=== PATIENT | female | born 2000 | race Two or more races ===

== ENCOUNTER 2019-08-13 17:18 | Emergency (ER) | payer BC ==
--- NOTE | 2019-08-13 20:12 | EDM.PDOC ---
ED HPI GENERAL MEDICAL PROBLEM - General Chief Complaint: MANAGER PRESENTATION Problem Stated Complaint: NEWLY PG - BLEEDING Time Seen by Provider: 08/13/19 18:09 Source of Information: Reports: Patient History Limitations: Reports: No Limitations - History of Present Illness INITIAL COMMENTS - FREE TEXT/NARRATIVE: 18-year-old female presents for evaluation and treatment of vaginal bleeding and cramping. Patient reports her last menstrual period was July 10. She took multiple at home urine et this past weekend and they were all positive. She contacted her MANAGER PRESENTATION provider, Dr. Owens in [place], who ordered several outpatient quantitative hCGs. 2 days ago her hCG was 68. It was repeated today but she has not yet noted results. She is a . She does not know her blood type. Patient reports last night she noticed some brownish discharge. Today at work she states that she felt "wet ". And appreciated some bright red blood on her panty liner. She has not had enough to soak through the panty liner. This only been bleeding for a couple hours prior to arrival in the ER. She is now developed cramping, primarily in the upper abdomen. No back pain, lightheadedness, dizziness or syncope. Suprapubic Pain Score (Numeric/FACES): 5 - Related Data Allergies Allergy/AdvReac Type Severity Reaction Status Date / Time bee venom protein (honey bee) Allergy Airway Verified 08/13/19 17:49 Tightness Home Meds: Home Meds Vits #93/Iron Fum/FA [ Formula Tablet] 1 each PO DAILY [History] Past Medical History - Past Health History Medical/Surgical History: Denies Medical/Surgical History Social & Family History - Tobacco Use Smoking Status *Q: Never Smoker - Caffeine Use Caffeine Use: Reports: Coffee - Recreational Drug Use Recreational Drug Use: No ED ROS GENERAL - Review of Systems Review Of Systems: See Below GI/Abdominal: Reports: Abdominal Pain (cramping, upper abdomen). Denies: Nausea , Vomiting : Reports: Other (reports vaginal bleeding). Denies: Dysuria Musculoskeletal: Denies: Back Pain ED EXAM - Physical Exam Exam: See Below Exam Limited By: No Limitations General Appearance: Alert, WD/WN, No Apparent Distress Respiratory/Chest: No Respiratory Distress, Lungs Clear, Normal Breath Sounds Cardiovascular: Normal Peripheral Pulses, Regular Rate, Rhythm, No Murmur GI/Abdominal Exam: Normal Bowel Sounds, Soft, Non-Tender, No Distention Neurological: Alert, Oriented, Normal Cognition Psychiatric: Normal Affect, Normal Mood Skin Exam: Warm, Dry, Normal Color Course - Vital Signs Last Recorded V/S: Last Vital Signs Temp 100.2 F 08/13/19 17:57 Pulse 75 08/13/19 17:57 Resp 16 08/13/19 17:57 BP 125/85 08/13/19 17:57 Pulse Ox 100 08/13/19 17:57 - Orders/Labs/Meds Orders: Active Orders 24 hr Category Date Time Status Orthostatic Vital Signs [RC] ASDIRECTED Care 08/13/19 18:41 Active Labs: Laboratory Tests 08/13/19 08/13/19 08/13/19 Range/Units 19:03 19:03 19:03 WBC 10.28 H (3.98-10.04) K/mm3 RBC 4.66 (3.98-5.22) M/mm3 Hgb 13.1 (11.2-15.7) gm/dl Hct 40.6 (34.1-44.9) % MCV 87.1 (79.4-94.8) fl MCH 28.1 (25.6-32.2) pg MCHC 32.3 (32.2-35.5) g/dl RDW Std Deviation 44.3 (36.4-46.3) fL Plt Count 272 (182-369) K/mm3 MPV 11.4 (9.4-12.3) fl Neut % (Auto) 69.1 (34.0-71.1) % Lymph % (Auto) 23.4 (19.3-51.7) % [place] % (Auto) 6.4 (4.7-12.5) % Eos % (Auto) 0.6 L (0.7-5.8) Baso % (Auto) 0.3 (0.1-1.2) % Neut # (Auto) 7.10 H (1.56-6.13) K/mm3 Lymph # (Auto) 2.41 (1.18-3.74) K/mm3 [place] # (Auto) 0.66 H (0.24-0.36) K/mm3 Eos # (Auto) 0.06 (0.04-0.36) K/mm3 Baso # (Auto) 0.03 (0.01-0.08) K/mm3 HCG, Quant 52.0 mIU/mL Urine Color (Yellow) Urine Appearance (Clear) Urine pH (5.0-8.0) Ur Specific Hayes (1.005-1.030) Urine Protein (Negative) Urine Glucose (UA) (Negative) Urine Ketones (Negative) Urine Occult Blood (Negative) Urine Nitrite (Negative) Urine Bilirubin (Negative) Urine Urobilinogen (0.2-1.0) Ur Leukocyte Esterase (Negative) Urine RBC (0-5) /hpf Urine WBC (0-5) /hpf Ur Squamous Epith Cells (0-5) /hpf Urine Bacteria (FEW) /hpf Urine Mucus (FEW) /hpf Blood Type O POSITIVE 08/13/19 Range/Units 20:16 WBC (3.98-10.04) K/mm3 RBC (3.98-5.22) M/mm3 Hgb (11.2-15.7) gm/dl Hct (34.1-44.9) % MCV (79.4-94.8) fl MCH (25.6-32.2) pg MCHC (32.2-35.5) g/dl RDW Std Deviation (36.4-46.3) fL Plt Count (182-369) K/mm3 MPV (9.4-12.3) fl Neut % (Auto) (34.0-71.1) % Lymph % (Auto) (19.3-51.7) % [place] % (Auto) (4.7-12.5) % Eos % (Auto) (0.7-5.8) Baso % (Auto) (0.1-1.2) % Neut # (Auto) (1.56-6.13) K/mm3 Lymph # (Auto) (1.18-3.74) K/mm3 [place] # (Auto) (0.24-0.36) K/mm3 Eos # (Auto) (0.04-0.36) K/mm3 Baso # (Auto) (0.01-0.08) K/mm3 HCG, Quant mIU/mL Urine Color Yellow (Yellow) Urine Appearance Clear (Clear) Urine pH 7.0 (5.0-8.0) Ur Specific Hayes 1.020 (1.005-1.030) Urine Protein Negative (Negative) Urine Glucose (UA) Negative (Negative) Urine Ketones Negative (Negative) Urine Occult Blood 3+ H (Negative) Urine Nitrite Negative (Negative) Urine Bilirubin Negative (Negative) Urine Urobilinogen 0.2 (0.2-1.0) Ur Leukocyte Esterase Negative (Negative) Urine RBC 40-50 H (0-5) /hpf Urine WBC 0-5 (0-5) /hpf Ur Squamous Epith Cells 5-10 H (0-5) /hpf Urine Bacteria Few (FEW) /hpf Urine Mucus Not seen (FEW) /hpf Blood Type - Re-Assessments/Exams Free Text/Narrative Re-Assessment/Exam: 08/13/19 20:10 Blood type is O+. She is not requiring rhogram. I reviewed the labs with her. She is most likely miscarrying. I will have her follow up with OB. Discharge instructions as documented. Departure - Departure Time of Disposition: 20:10 Disposition: Home, Self-Care 01 Condition: Fair Clinical Impression: Threatened - Discharge Information *PRESCRIPTION DRUG MONITORING PROGRAM REVIEWED*: No *COPY OF PRESCRIPTION DRUG MONITORING REPORT IN PATIENT DORIS: No Instructions: Threatened Miscarriage, [id number] Referrals: Lakesha Owens MD [Primary Care Provider] - Forms: ED Department Discharge, ED Return to Work/School Form Additional Instructions: Follow-up with OB, recommend that your quants continue to be followed. [id number] Tylenol as needed for pain relief. Make sure you are drinking plenty of fluids. Please return to the ER if your symptoms change or worsen. - My Orders Last 24 Hours: My Active Orders 08/13/19 18:41 Orthostatic Vital Signs [RC] ASDIRECTED - Assessment/Plan Last 24 Hours: My Active Orders 08/13/19 18:41 Orthostatic Vital Signs [RC] ASDIRECTED
== END 2019-08-13 20:29 | disposition home or self-care (01) ==
LOC: JD.ED 17:18
DX: O20.0 Threatened abortion (principal); Z91.030 Bee allergy status; Z3A.00 Weeks of gestation of pregnancy not specified
CPT/HCPCS: 36415; 81001; 84702; 85025; 86900; 86901; 99282; 99284